=== PATIENT | female | born 1935 | race African-American/Black ===

== ENCOUNTER 2016-12-21 22:30 | Emergency (ER) | payer OTHER ==
[2016-12-21 18:25] LABS: BASOPHILS 0.4 %; BASOPHILS ABSOLUTE 0.02 10/3/uL (0.0-0.16); EOSINOPHILS 0 %; ER CBC TAT 0 Hrs 09 Mins; HEMATOCRIT 43.7 % (36.0-48.0); HEMOGLOBIN 13.4 g/dL (12.0-16.0); IMMATURE GRANULOCYTES 0.4 %; IMMATURE GRANULOCYTES ABSOLUTE 0.02 10/3/uL (0.0-0.11); LYMPHOCYTES ABSOLUTE 1.75 10/3/uL (0.67-4.30); MEAN CORPUS HGB CONC 30.7 g/dL (32.0-36.0); MEAN CORPUSCULAR HEMOGLOB 27.6 pg (26.0-34.0); MEAN CORPUSCULAR VOLUME 90.1 fL (80-100); MEAN PLATELET VOLUME 10.2 fL (9.2-13.0); MONOCYTES 8.1 %; MONOCYTES ABSOLUTE 0.43 10/3/uL (0.21-1.20); NEUTROPHILS 58.1 %; NEUTROPHILS ABSOLUTE 3.09 10/3/uL (2.02-8.40); PLATELET COUNT 159 10/3/uL (150-400); RBC DISTRIBUTION WIDTH 14.5 % (12.0-16.0); RED CELL COUNT 4.85 10/6/uL (4.0-5.6); WHITE BLOOD CELLS 5.3 10/3/uL (4.5-10.5)
[2016-12-21 18:27] LABS: MANUAL DIFF NO %
[2016-12-21 18:41] LABS: INTERNATIONAL NORMAL RATI 2.2 UNITS (-); PARTIAL THROMBO TIME 37.1 SEC (22.5-37.2); PROTIME (NOT ORD) 23.8 SEC (12.0-14.5)
[2016-12-21 18:42] LABS: BUN (BLOOD UREA NITROGEN) 25 MG/DL (6-23); CALCIUM, SERUM 8.9 MG/DL (8.5-10.4); CHEST PAIN PROFILE TAT 0 Hrs 26 Mins; CHLORIDE, SERUM 104 MMOL/L (96-112); CO2 (CARBON DIOXIDE) 30 MMOL/L (24-34); GFR AFRICAN AMERICAN 49 ML/MIN (>=60); GFR NON AFRICAN AMERICAN 43 ML/MIN (>=60); SODIUM, SERUM 139 MMOL/L (135-148); TROPONIN I <0.02 NG/ML (<0.05)
[2016-12-21 18:43] LABS: POTASSIUM, SERUM 3.7 MMOL/L (3.5-5.3)
[2016-12-21 18:44] LABS: GLUCOSE, SERUM 94 MG/DL (60-99)
[2016-12-21 21:53] LABS: ALBUMIN 3.6 G/DL (3.5-5.0); ALKALINE PHOSPHATASE 91 U/L (45-117); SGOT(AST) 22 U/L (5-40); SGPT(ALT) 22 U/L (5-65); TOTAL BILIRUBIN 0.3 MG/DL (0-1.2); TOTAL PROTEIN 8.6 G/DL (6.0-8.5)
[2016-12-21 21:54] LABS: DIRECT BILIRUBIN < 0.1 MG/DL (0.0-0.4); INDIRECT BILIRUBIN(NOT ORDER) 0.2 MG/DL (0.1-0.9)
[~2016-12-21 22:30] MED LIST: ACET500CAP PO; ASAB PO; CALTRA600D PO; DILT-XR120 MG PO; FERROUS SULF325 M1 PO; HEMOCYTET PO; JANTOVEN6 MG PO; KLOR-CON M2020 MEQ PO; L40 PO; LIPITOR20 PO; MAGOX4 PO; MAX25 PO; MULTIVIT/MIN PO; NATURA2; SENSIPAR30 M1 OR; VITAMIN D31000 UNIT PO; VITE PO; ZOCOR40 PO
[2017-02-12] MEDS ORDERED: SINGULAIR1 PO (11:15)
[2017-02-12] MEDS ORDERED: BETAPACE80 PO (11:18)
[2017-02-12] MEDS ORDERED: GLUCPH PO (11:18)
[2017-02-12] MEDS ORDERED: NORV25 PO (11:19)
[2017-02-12] MEDS ORDERED: BREO ELLIPTA INH (11:21)
== END 2016-12-21 23:32 | disposition home or self-care (01) ==
LOC: ER 22:30
PROVIDERS: Emergency Medicine
DX: R07.89 Other chest pain (principal); J44.9 Chronic obstructive pulmonary disease, unspecified; I10 Essential (primary) hypertension; Z95.5 Presence of coronary angioplasty implant and graft; Z79.82 Long term (current) use of aspirin; Z79.01 Long term (current) use of anticoagulants; Z79.899 Other long term (current) drug therapy
CPT/HCPCS: 71020; 74176; 80048; 80076; 83690; 83735; 84484; 85025; 85610; 85730; 93005; 96374; 99285; A9270-GY